=== PATIENT | male | born 1980 | race Caucasian/White ===

== ENCOUNTER 2024-02-18 14:30 | Emergency (ER) | payer OTHER ==
[~2024-02-18] VITALS: Ht 177.8 cm; Wt 79.8 kg
[2024-02-18 17:05] LABS: APPEARANCE,URINE Clear (CLEAR); BILIRUBIN,URINE Negative (NEGATIVE); BLOOD, URINE Negative Ery/uL (NEGATIVE); COLOR,URINE YELLOW (YELLOW); KETONES,URINE Negative (NEGATIVE); LEUKOCYTE ESTERASE ,URINE Negative (NEGATIVE); NITRITE, URINE Negative (NEGATIVE); PH,URINE 5.5 (5.0-8.0); PROTEIN,URINE Negative (NEGATIVE); UGLUCOSE Negative (NEGATIVE); UROBILINOGEN,URINE 0.2 EU/dL (0.2)
[2024-02-18] MEDS ORDERED: ACET-2605 PO (17:15)
[2024-02-18] MEDS ORDERED: IBUP-1955 PO (17:15)
[2024-02-18 18:31] VITALS: BP 145/89; TEMP 98.3; O2SAT 100
== END 2024-02-18 17:15 | disposition home or self-care (01) ==
LOC: ER 14:36
DX: N43.3 Hydrocele, unspecified (principal); N50.812 Left testicular pain; N50.811 Right testicular pain; N50.82 Scrotal pain
CPT/HCPCS: 76870-TC